=== PATIENT | female | born 1985 | race African-American/Black ===

== ENCOUNTER 2023-06-15 10:17 | Inpatient (IN) | payer MEDICARE ==
[~2023-06-15] VITALS: Ht 170.2 cm; Wt 69.5 kg
[2023-06-15] VITALS (23 sets, daily range): BP systolic 89–156; BP diastolic 49–74; PULSE 68–119; RESP 10–28; TEMP 91.2–96.8
[2023-06-15] MEDS ORDERED: SODIUM BICARBONATE 8.4% 1 MEQ/ML 50ML SYR IV ONE (10:30)
[2023-06-15] MEDS ORDERED: SODIUM CHLORIDE 0.9% 1,000 ML IV ONE (10:30)
[2023-06-15] MEDS ORDERED: ETOMIDATE 2MG/ML 10ML VIAL IV ONE (10:30)
[2023-06-15] MEDS: FENTANYL 2500MCG/250ML PMX 250 ML IV ONE (10:30)
[2023-06-15] MEDS ORDERED: VANCOMYCIN 1G PREMIX 200 ML IV ONE (10:30)
[2023-06-15] MEDS ORDERED: MIDAZOLAM HCL 100 MG in DEXT 5% WATER 80 ML IV ONE (10:30)
[2023-06-15] MEDS ORDERED: VECURONIUM BROMIDE 10 MG/VIAL IV ONE (10:30)
[2023-06-15] MEDS ORDERED: CALCIUM CHLORIDE 1GM/10ML SYR IV ONE (10:30)
[2023-06-15] MEDS ORDERED: PIPERACILLIN/TAZO 3.375G/50ML 50 ML IV ONE (10:30)
[2023-06-15 10:45] LABS: HEMATOCRIT. 48.2 % (36.0-48.0); HEMOGLOBIN. 12.1 g/dL (12.0-16.0); MEAN CORPUSCULAR HEMOGLOBIN 26.6 pg (28.0-32.0); MEAN CORPUSCULAR HGB CONC 25.2 g/dL (31.0-37.0); MEAN CORPUSCULAR VOLUME 105.7 fL (81.0-99.0); MEAN PLATELET VOLUME 10.8 fl (7.4-10.4); PLATELET 240 x1000/uL (130-400); RED BLOOD CELL COUNT 4.56 mill/uL (4.2-5.4); RED CELL DISTRIBUTION WIDTH 23.3 % (11.6-14.6); WHITE BLOOD COUNT 16.6 x1000/uL (4.5-11.0)
[2023-06-15] MEDS ORDERED: FENTANYL CITRATE/PF 2,500 MCG in SODIUM CHLORIDE 0.9% 200 ML IV ONE (10:45)
[2023-06-15] MEDS ORDERED: MIDAZOLAM HCL 100 MG in SODIUM CHLORIDE 0.9% 80 ML IV PRN (11:00)
[2023-06-15] MEDS ORDERED: FENTANYL CITRATE/PF 2,500 MCG in SODIUM CHLORIDE 0.9% 200 ML IV PRN (11:00)
[2023-06-15 11:11] LABS: LACTIC ACID 3.5 mmol/L (0.4-2.0)
[2023-06-15] MEDS ORDERED: INSULIN REGULAR (HUMULIN R) 300UNITS/3ML VIAL SUBCUT ONE (11:15)
[2023-06-15] MEDS ORDERED: NOREPINEPHRINE 8MG/250ML PMX 250 ML IV ONE (11:15)
[2023-06-15 11:51] LABS: BG CARBOXYHEMOGLOBIN 0.8 % (0.5-1.5); BG DEOXYHEMOGLOBIN 0.8 % (0.0-5.0); BG FRACTION INSPIRED OXYGEN 50; BG HCO3 ACT 6.3 mmol/L (22.0-26.0); BG METHEMOGLOBIN 0.5 % (0.0-1.5); BG OXYGEN SATURATION 99.2 % (92.0-98.5); BG OXYHEMOGLOBIN 97.9 % (94.0-97.0); BG PCO2 33.3 mmHg (35.0-45.0); BG PH 6.898 (7.350-7.450); BG PO2 283.6 mmHg (75.0-100.0); BG SAMPLE SITE RIGHT BRACHIAL; BG TOTAL HEMOGLOBIN 13.5 g/dL (12.0-18.0); BG VENT MODE VENT - AC
[2023-06-15] MEDS ORDERED: SODIUM BICARBONATE 150 MEQ in SODIUM CHLORIDE 0.45% 1,000 ML IV STA (11:51)
[2023-06-15 12:00] LABS: ALANINE AMINOTRANSFERASE < 7 IU/L (10-49); ALBUMIN 3.1 g/dL (3.2-4.8); ASPARTATE AMINOTRANSFERASE 39 IU/L (<34); CALCIUM 11.6 mg/dL (8.7-10.4); CHLORIDE 79 mEq/L (98-107); PROTEIN TOTAL 6.2 g/dL (6.0-8.3); SODIUM 129 mEq/L (136-145); UREA NITROGEN BLOOD 100 mg/dL (9-23)
[2023-06-15] MEDS ORDERED: KCL 20MEQ/100ML PREMIX 100 ML IV PRN (12:00)
[2023-06-15] MEDS ORDERED: POTASSIUM CHLORIDE INJ 40 MEQ in SODIUM CHLORIDE 0.9% 230 ML IV PRN (12:00)
[2023-06-15] MEDS ORDERED: DEXTROSE 50% WATER 50ML SYRINGE IV PRN ×2 (12:00→22:00)
[2023-06-15] MEDS ORDERED: INSULIN REGULAR (DRIP) 100 UNITS in SODIUM CHLORIDE 0.9% 99 ML IV SCH ×2 (12:00→22:00)
[2023-06-15 12:19] LABS: CARBON DIOXIDE < 10 mEq/L (21-32); ETHANOL BLOOD < 10 mg/dL (<10)
[2023-06-15 12:22] LABS: BILIRUBIN TOTAL < 0.2 mg/dL (0.1-1.0); TROPONIN I HIGH SENSITIVITY 75 ng/L (3.0-34)
[2023-06-15 12:22] LABS: DIFFERENTIAL COMMENT 1
[2023-06-15 12:23] LABS: PROTHROMBIN TIME > 100.0 sec (9.6-11.0)
[2023-06-15 12:24] LABS: GLUCOSE 1193 mg/dL (70-105)
[2023-06-15 12:25] LABS: INR > 10.0; POTASSIUM 6.9 mEq/L (3.5-5.1)
[2023-06-15] MEDS: BLOOD SUGAR DIAGNOSTIC STRIP TEST SCH ×12 (12:38→23:00)
[2023-06-15 12:58] LABS: HCG SCREEN NEGATIVE
[2023-06-15 13:56] LABS: PLATELET ESTIMATE NORMAL; TOXIC VACUOLATION 2+
[2023-06-15 13:57] LABS: ANISOCYTOSIS 1+
[2023-06-15] MEDS ORDERED: IPRATROPIUM/ALBUTEROL 0.5-3(2.5)MG/3ML NEB HHN PRN (14:30)
[2023-06-15] MEDS ORDERED: ONDANSETRON HCL 4MG/2ML INJ IV PRN (14:30)
[2023-06-15] MEDS ORDERED: PHYTONADIONE 10MG/ML INJ SUBCUT NR (14:30)
[2023-06-15] MEDS ORDERED: ACETAMINOPHEN 650MG/20.3ML UDC GT PRN (14:30)
[2023-06-15] MEDS ORDERED: INSULIN REGULAR 100U/100ML PMX 100 ML IV SCH (15:00)
[2023-06-15 16:01] LABS: CALCIUM 8.1 mg/dL (8.7-10.4); POTASSIUM 4.2 mEq/L (3.5-5.1)
[2023-06-15 16:14] LABS: CREATININE 9.1 mg/dL (0.6-1.0)
[2023-06-15 17:36] LABS: BG BASE EXCESS -10.6 mmol/L (-2.0-2.0); BG CARBOXYHEMOGLOBIN 0.9 % (0.5-1.5); BG DEOXYHEMOGLOBIN 0.9 % (0.0-5.0); BG FRACTION INSPIRED OXYGEN 40; BG HCO3 ACT 13.4 mmol/L (22.0-26.0); BG METHEMOGLOBIN 0.3 % (0.0-1.5); BG OXYGEN SATURATION 99.1 % (92.0-98.5); BG OXYHEMOGLOBIN 97.9 % (94.0-97.0); BG PCO2 25.4 mmHg (35.0-45.0); BG PH 7.339 (7.350-7.450); BG PO2 161.4 mmHg (75.0-100.0); BG SAMPLE SITE RIGHT BRACHIAL; BG TOTAL HEMOGLOBIN 13.5 g/dL (12.0-18.0); BG VENT MODE VENT - AC
[2023-06-15] MEDS ORDERED: PIPERACILLIN/TAZO 3.375G/50ML 50 ML IV SCH (21:00)
[2023-06-15] MEDS ORDERED: FENTANYL 2500MCG/250ML PMX 250 ML IV ONE (22:00)
[2023-06-15] MEDS: DEXT 5%/0.9% NACL 1,000 ML IV SCH (22:00)
[2023-06-15] MEDS ORDERED: MIDAZOLAM 100MG/100ML PMX 100 ML IV PRN (22:00)
[2023-06-15] MEDS ORDERED: FENTANYL CITRATE 2,500 MCG in SODIUM CHLORIDE 0.9% 200 ML IV PRN (22:30)
[2023-06-15] MEDS ORDERED: MIDAZOLAM HCL 100 MG in SODIUM CHLORIDE 0.9% 100 ML IV PRN (22:30)
[2023-06-15] MEDS: INSULIN REGULAR 100U/100ML PMX 100 ML IV SCH (23:46)
[2023-06-15 23:47] LABS: BG BASE EXCESS 0.9 mmol/L (-2.0-2.0); BG DEOXYHEMOGLOBIN 1.9 % (0.0-5.0); BG FRACTION INSPIRED OXYGEN 40; BG HCO3 ACT 23.4 mmol/L (22.0-26.0); BG METHEMOGLOBIN 0.3 % (0.0-1.5); BG OXYGEN SATURATION 98.1 % (92.0-98.5); BG OXYHEMOGLOBIN 96.8 % (94.0-97.0); BG PCO2 31.1 mmHg (35.0-45.0); BG PH 7.495 (7.350-7.450); BG PO2 101.6 mmHg (75.0-100.0); BG SAMPLE SITE RIGHT FEMORAL; BG TOTAL HEMOGLOBIN 13.2 g/dL (12.0-18.0); BG VENT MODE VENT - AC
[2023-06-16] VITALS (100 sets, daily range): BP systolic 83–165; BP diastolic 43–87; PULSE 102–125; RESP 13–26; TEMP 97–99.7
[2023-06-16] MEDS ORDERED: NOREPINEPHRINE 8MG/250ML PMX 250 ML IV PRN
[2023-06-16 00:32] LABS: ALANINE AMINOTRANSFERASE 10 IU/L (10-49); ALBUMIN 3.4 g/dL (3.2-4.8); ASPARTATE AMINOTRANSFERASE 55 IU/L (<34); BILIRUBIN TOTAL 0.2 mg/dL (0.1-1.0); CALCIUM 8.2 mg/dL (8.7-10.4); CARBON DIOXIDE 19 mEq/L (21-32); CHLORIDE 85 mEq/L (98-107); PHOSPHORUS 4.8 mg/dL (2.5-4.9); POTASSIUM 4.6 mEq/L (3.5-5.1); PROTEIN TOTAL 6.9 g/dL (6.0-8.3); SODIUM 133 mEq/L (136-145); UREA NITROGEN BLOOD 63 mg/dL (9-23)
[2023-06-16 00:42] LABS: GLUCOSE 554 mg/dL (70-105)
[2023-06-16 00:43] LABS: CREATININE 11.3 mg/dL (0.6-1.0)
[2023-06-16] MEDS: BLOOD SUGAR DIAGNOSTIC STRIP TEST SCH ×23 (01:09→23:00)
[2023-06-16] MEDS: PIPERACILLIN/TAZO 3.375G/50ML 50 ML IV SCH ×3 (01:48→21:26)
[2023-06-16] MEDS: DEXT 5%/0.9% NACL 1,000 ML IV SCH ×3 (05:16→21:26)
[2023-06-16 05:49] LABS: HEMATOCRIT. 38.4 % (36.0-48.0); HEMOGLOBIN. 11.5 g/dL (12.0-16.0); MEAN CORPUSCULAR HEMOGLOBIN 26.1 pg (28.0-32.0); MEAN CORPUSCULAR HGB CONC 29.9 g/dL (31.0-37.0); MEAN CORPUSCULAR VOLUME 87.4 fL (81.0-99.0); MEAN PLATELET VOLUME 8.8 fl (7.4-10.4); PLATELET 269 x1000/uL (130-400); RED BLOOD CELL COUNT 4.39 mill/uL (4.2-5.4); RED CELL DISTRIBUTION WIDTH 20.7 % (11.6-14.6); WHITE BLOOD COUNT 14.3 x1000/uL (4.5-11.0)
[2023-06-16 05:53] LABS: INR 1.5; PROTHROMBIN TIME 16.1 sec (9.6-11.0)
[2023-06-16 06:51] LABS: DIFFERENTIAL COMMENT 1
[2023-06-16 07:03] LABS: ALANINE AMINOTRANSFERASE 9 IU/L (10-49); ALBUMIN 3.4 g/dL (3.2-4.8); ASPARTATE AMINOTRANSFERASE 53 IU/L (<34); BILIRUBIN TOTAL 0.2 mg/dL (0.1-1.0); CALCIUM 8.7 mg/dL (8.7-10.4); CARBON DIOXIDE 21 mEq/L (21-32); CHLORIDE 89 mEq/L (98-107); GLUCOSE 320 mg/dL (70-105); PHOSPHORUS 4.5 mg/dL (2.5-4.9); POTASSIUM 4.7 mEq/L (3.5-5.1); PROTEIN TOTAL 6.9 g/dL (6.0-8.3); SODIUM 135 mEq/L (136-145); UREA NITROGEN BLOOD 66 mg/dL (9-23)
[2023-06-16 07:04] LABS: CREATININE 11.7 mg/dL (0.6-1.0)
[2023-06-16 08:56] LABS: BG BASE EXCESS 7.1 mmol/L (-2.0-2.0); BG CARBOXYHEMOGLOBIN 1.2 % (0.5-1.5); BG DEOXYHEMOGLOBIN 1.7 % (0.0-5.0); BG FRACTION INSPIRED OXYGEN 40; BG HCO3 ACT 31.3 mmol/L (22.0-26.0); BG METHEMOGLOBIN 0.3 % (0.0-1.5); BG OXYGEN SATURATION 98.3 % (92.0-98.5); BG OXYHEMOGLOBIN 96.8 % (94.0-97.0); BG PCO2 42.6 mmHg (35.0-45.0); BG PH 7.484 (7.350-7.450); BG PO2 109.9 mmHg (75.0-100.0); BG SAMPLE SITE LEFT BRACHIAL; BG TOTAL HEMOGLOBIN 13.1 g/dL (12.0-18.0); BG TOTAL RESPIRATORY RATE 20 b/min; BG VENT MODE VENT - AC
[2023-06-16 09:17] LABS: CARBON DIOXIDE 26 mEq/L (21-32); CHLORIDE 93 mEq/L (98-107); PHOSPHORUS 4.7 mg/dL (2.5-4.9); POTASSIUM 4.2 mEq/L (3.5-5.1); SODIUM 140 mEq/L (136-145)
[2023-06-16] MEDS: INSULIN REGULAR 100U/100ML PMX 100 ML IV SCH (09:38)
[2023-06-16 10:04] LABS: PLATELET ESTIMATE NORMAL
[2023-06-16 10:05] LABS: ANISOCYTOSIS 1+
[2023-06-16] MEDS: PANTOPRAZOLE SODIUM 40 MG/VIAL IV SCH (11:00)
[2023-06-16 12:32] LABS: CALCIUM 8.9 mg/dL (8.7-10.4); POTASSIUM 4.8 mEq/L (3.5-5.1)
[2023-06-16 12:34] LABS: CREATININE 11.5 mg/dL (0.6-1.0)
[2023-06-16] MEDS: ENOXAPARIN 60MG/0.6ML SYR SUBCUT SCH (12:53)
[2023-06-16 17:47] LABS: CALCIUM 9.4 mg/dL (8.7-10.4); POTASSIUM 4.5 mEq/L (3.5-5.1)
[2023-06-16 18:05] LABS: CREATININE 12.5 mg/dL (0.6-1.0)
[2023-06-16 22:06] LABS: CALCIUM 9.3 mg/dL (8.7-10.4); POTASSIUM 4.6 mEq/L (3.5-5.1)
[2023-06-16 22:16] LABS: CREATININE 11.7 mg/dL (0.6-1.0)
[2023-06-17] VITALS (83 sets, daily range): BP systolic 106–166; BP diastolic 56–105; PULSE 109–129; RESP 0–28; TEMP 96.7–100.4
[2023-06-17] MEDS: BLOOD SUGAR DIAGNOSTIC STRIP TEST SCH ×14 (00:07→21:57)
[2023-06-17 05:46] LABS: HEMATOCRIT. 35.1 % (36.0-48.0); HEMOGLOBIN. 10.9 g/dL (12.0-16.0); MEAN CORPUSCULAR HEMOGLOBIN 26.5 pg (28.0-32.0); MEAN CORPUSCULAR HGB CONC 31.2 g/dL (31.0-37.0); MEAN PLATELET VOLUME 8.6 fl (7.4-10.4); PLATELET 170 x1000/uL (130-400); RED BLOOD CELL COUNT 4.13 mill/uL (4.2-5.4); WHITE BLOOD COUNT 13.6 x1000/uL (4.5-11.0)
[2023-06-17 05:51] LABS: INR 1.1
[2023-06-17 06:13] LABS: POTASSIUM 4.1 mEq/L (3.5-5.1)
[2023-06-17 06:15] LABS: CREATININE 11.7 mg/dL (0.6-1.0)
[2023-06-17] MEDS: DEXT 5%/0.9% NACL 1,000 ML IV SCH (06:40)
[2023-06-17 06:42] LABS: DIFFERENTIAL COMMENT 1
[2023-06-17 08:42] LABS: BG BASE EXCESS 0.3 mmol/L (-2.0-2.0); BG CARBOXYHEMOGLOBIN 0.5 % (0.5-1.5); BG DEOXYHEMOGLOBIN 1.9 % (0.0-5.0); BG FRACTION INSPIRED OXYGEN 40; BG HCO3 ACT 24.3 mmol/L (22.0-26.0); BG METHEMOGLOBIN 0.3 % (0.0-1.5); BG OXYGEN SATURATION 98.1 % (92.0-98.5); BG OXYHEMOGLOBIN 97.3 % (94.0-97.0); BG PH 7.436 (7.350-7.450); BG PO2 115.2 mmHg (75.0-100.0); BG SAMPLE SITE RIGHT RADIAL; BG TOTAL HEMOGLOBIN 11.5 g/dL (12.0-18.0); BG TOTAL RESPIRATORY RATE 20 b/min; BG VENT MODE VENT - AC
[2023-06-17] MEDS: PIPERACILLIN/TAZO 3.375G/50ML 50 ML IV SCH ×2 (09:16→21:49)
[2023-06-17] MEDS: ENOXAPARIN 60MG/0.6ML SYR SUBCUT SCH (09:17)
[2023-06-17 10:19] LABS: CALCIUM 8.9 mg/dL (8.7-10.4); POTASSIUM 4.3 mEq/L (3.5-5.1)
[2023-06-17 10:29] LABS: CREATININE 12.5 mg/dL (0.6-1.0)
[2023-06-17 10:34] LABS: ANISOCYTOSIS 1+
[2023-06-17 10:35] LABS: PLATELET ESTIMATE NORMAL
[2023-06-17] MEDS: PANTOPRAZOLE SODIUM 40 MG/VIAL IV SCH (11:21)
[2023-06-17 12:30] LABS: CARBON DIOXIDE 27 mEq/L (21-32); CHLORIDE 100 mEq/L (98-107); PHOSPHORUS 5.8 mg/dL (2.5-4.9); POTASSIUM 4.4 mEq/L (3.5-5.1); SODIUM 141 mEq/L (136-145)
[2023-06-17] MEDS ORDERED: DEXTROSE 50% WATER 50ML SYRINGE IV PRN (12:45)
[2023-06-17] MEDS: INSULIN LISPRO 100 UNITS/ML SUBCUT SCH ×3 (12:53→22:13)
[2023-06-17] MEDS ORDERED: VANCOMYCIN 1G PREMIX 200 ML IV NR (16:00)
[2023-06-17] MEDS: INSULIN GLARGINE 100 UNITS/ML SUBCUT SCH ×2 (17:38→21:50)
[2023-06-17] MEDS: ACETAMINOPHEN 650MG/20.3ML UDC GT PRN (19:47)
[2023-06-17] MEDS: CLONIDINE 0.1MG TABLET PO PRN (22:23)
[2023-06-17 23:06] LABS: HEPATITIS A AB IGM NEGATIVE (Negative); HEPATITIS B CORE AB IGM NEGATIVE (Negative); HEPATITIS B SURFACE ANTIGEN NEGATIVE (Negative); HEPATITIS C AB NON REACTIVE (Neg) (Negative)
[2023-06-18] VITALS (93 sets, daily range): BP systolic 142–199; BP diastolic 77–119; PULSE 83–119; RESP 4–24; TEMP 98.9–100.1
[2023-06-18 05:14] LABS: HEMATOCRIT. 31.4 % (36.0-48.0); HEMOGLOBIN. 9.6 g/dL (12.0-16.0); MEAN CORPUSCULAR HEMOGLOBIN 25.9 pg (28.0-32.0); MEAN CORPUSCULAR HGB CONC 30.4 g/dL (31.0-37.0); MEAN CORPUSCULAR VOLUME 85.2 fL (81.0-99.0); MEAN PLATELET VOLUME 8.7 fl (7.4-10.4); PLATELET 142 x1000/uL (130-400); RED BLOOD CELL COUNT 3.69 mill/uL (4.2-5.4); WHITE BLOOD COUNT 15.1 x1000/uL (4.5-11.0)
[2023-06-18 05:23] LABS: CALCIUM 8.9 mg/dL (8.7-10.4); POTASSIUM 4.8 mEq/L (3.5-5.1)
[2023-06-18 05:41] LABS: CREATININE 8.6 mg/dL (0.6-1.0)
[2023-06-18] MEDS: CLONIDINE 0.1MG TABLET PO PRN (05:52)
[2023-06-18 06:00] LABS: DIFFERENTIAL COMMENT 1
[2023-06-18] MEDS: BLOOD SUGAR DIAGNOSTIC STRIP TEST SCH ×4 (07:50→21:40)
[2023-06-18] MEDS: INSULIN LISPRO 100 UNITS/ML SUBCUT SCH ×4 (08:20→22:04)
[2023-06-18] MEDS: PIPERACILLIN/TAZO 3.375G/50ML 50 ML IV SCH ×2 (09:20→21:40)
[2023-06-18] MEDS: PANTOPRAZOLE SODIUM 40 MG/VIAL IV SCH (09:21)
[2023-06-18] MEDS: ENOXAPARIN 60MG/0.6ML SYR SUBCUT SCH (09:21)
[2023-06-18] MEDS: INSULIN GLARGINE 100 UNITS/ML SUBCUT SCH ×2 (10:00→21:50)
[2023-06-18 10:11] LABS: BG BASE EXCESS 2.7 mmol/L (-2.0-2.0); BG CARBOXYHEMOGLOBIN 0.3 % (0.5-1.5); BG DEOXYHEMOGLOBIN 0.6 % (0.0-5.0); BG FRACTION INSPIRED OXYGEN 40; BG HCO3 ACT 26.4 mmol/L (22.0-26.0); BG METHEMOGLOBIN 0.3 % (0.0-1.5); BG OXYGEN SATURATION 99.4 % (92.0-98.5); BG OXYHEMOGLOBIN 98.8 % (94.0-97.0); BG PH 7.471 (7.350-7.450); BG PO2 222.3 mmHg (75.0-100.0); BG SAMPLE SITE RIGHT RADIAL; BG TOTAL HEMOGLOBIN 10.9 g/dL (12.0-18.0); BG VENT MODE VENT - AC
[2023-06-18] MEDS ORDERED: CLONIDINE 0.1MG TABLET PO NR (11:30)
[2023-06-18 12:22] LABS: ANISOCYTOSIS 2+; PLATELET ESTIMATE NORMAL; TARGET CELLS 1+
[2023-06-18 12:44] LABS: BG BASE EXCESS 4.4 mmol/L (-2.0-2.0); BG CARBOXYHEMOGLOBIN 1.1 % (0.5-1.5); BG DEOXYHEMOGLOBIN 0.7 % (0.0-5.0); BG FRACTION INSPIRED OXYGEN 35; BG HCO3 ACT 27.1 mmol/L (22.0-26.0); BG METHEMOGLOBIN 0.2 % (0.0-1.5); BG OXYGEN SATURATION 99.3 % (92.0-98.5); BG PCO2 33.9 mmHg (35.0-45.0); BG PH 7.521 (7.350-7.450); BG PO2 162.4 mmHg (75.0-100.0); BG SAMPLE SITE RIGHT RADIAL; BG TOTAL HEMOGLOBIN 11.5 g/dL (12.0-18.0); BG TOTAL RESPIRATORY RATE 17 b/min; BG VENT MODE VENT - CPAP
[2023-06-18] MEDS ORDERED: CLONIDINE HCL 0.3MG/24HR PATCH TD SCH (14:00)
[2023-06-18] MEDS: CLONIDINE 0.1MG TABLET PO SCH ×2 (15:11→21:40)
[2023-06-18] MEDS: ACETAMINOPHEN 650MG/20.3ML UDC GT PRN (18:22)
[2023-06-18] MEDS ORDERED: AMLODIPINE 5MG TABLET PO SCH (21:00)
[2023-06-19] VITALS (51 sets, daily range): BP systolic 147–218; BP diastolic 81–124; PULSE 76–106; RESP 15–29; TEMP 96.1–99.4
[2023-06-19] MEDS: CLONIDINE 0.1MG TABLET PO PRN (00:10)
[2023-06-19 05:43] LABS: HEMATOCRIT. 32.3 % (36.0-48.0); HEMOGLOBIN. 9.9 g/dL (12.0-16.0); MEAN CORPUSCULAR HEMOGLOBIN 26.1 pg (28.0-32.0); MEAN CORPUSCULAR HGB CONC 30.5 g/dL (31.0-37.0); MEAN CORPUSCULAR VOLUME 85.7 fL (81.0-99.0); MEAN PLATELET VOLUME 8.7 fl (7.4-10.4); PLATELET 136 x1000/uL (130-400); RED BLOOD CELL COUNT 3.78 mill/uL (4.2-5.4); RED CELL DISTRIBUTION WIDTH 21.4 % (11.6-14.6); WHITE BLOOD COUNT 15.4 x1000/uL (4.5-11.0)
[2023-06-19] MEDS: CLONIDINE 0.1MG TABLET PO SCH (05:45)
[2023-06-19 05:55] LABS: CALCIUM 9.1 mg/dL (8.7-10.4); POTASSIUM 4.6 mEq/L (3.5-5.1)
[2023-06-19 06:10] LABS: CREATININE 9.7 mg/dL (0.6-1.0)
[2023-06-19 07:37] LABS: DIFFERENTIAL COMMENT 1
[2023-06-19] MEDS: BLOOD SUGAR DIAGNOSTIC STRIP TEST SCH ×4 (07:50→21:19)
[2023-06-19] MEDS: AMLODIPINE 5MG TABLET PO SCH ×2 (08:00→18:23)
[2023-06-19] MEDS: INSULIN LISPRO 100 UNITS/ML SUBCUT SCH ×4 (08:20→21:00)
[2023-06-19] MEDS: MINOXIDIL 2.5MG TABLET PO SCH ×2 (09:00→21:21)
[2023-06-19] MEDS: PIPERACILLIN/TAZO 3.375G/50ML 50 ML IV SCH ×2 (09:00→21:20)
[2023-06-19] MEDS: PANTOPRAZOLE SODIUM 40 MG/VIAL IV SCH (09:45)
[2023-06-19] MEDS: ENOXAPARIN 60MG/0.6ML SYR SUBCUT SCH (09:45)
[2023-06-19] MEDS: INSULIN GLARGINE 100 UNITS/ML SUBCUT SCH ×2 (09:46→21:25)
[2023-06-19] MEDS: ISOSORBIDE DINITRATE 10MG TABLET PO SCH ×3 (11:00→20:00)
[2023-06-19] MEDS: CLONIDINE 0.2MG TABLET PO SCH ×2 (14:29→21:22)
[2023-06-19] MEDS ORDERED: LACTULOSE 20G/30ML UDC PO NR (15:15)
[2023-06-19 18:55] LABS: ANISOCYTOSIS 2+; PLATELET ESTIMATE NORMAL
[2023-06-19] MEDS ORDERED: EPOETIN ALFA 4000UNITS/ML VIAL SUBCUT SCH (21:00)
[2023-06-20] VITALS (7 sets, daily range): BP systolic 134–165; BP diastolic 67–95; PULSE 79–98; RESP 18–20; TEMP 97.4–100.2
[2023-06-20] MEDS: AMLODIPINE 5MG TABLET PO SCH (05:55)
[2023-06-20] MEDS: CLONIDINE 0.2MG TABLET PO SCH ×3 (06:04→21:58)
[2023-06-20] MEDS: BLOOD SUGAR DIAGNOSTIC STRIP TEST SCH ×4 (06:05→21:00)
[2023-06-20 06:58] LABS: BASOPHILS % 0.3 % (0.0-2.0); EOSINOPHILS % 6.2 % (0.0-5.0); HEMOGLOBIN. 10.2 g/dL (12.0-16.0); LYMPHOCYTES % 8.2 % (20.0-50.0); MEAN CORPUSCULAR HEMOGLOBIN 26.5 pg (28.0-32.0); MEAN CORPUSCULAR HGB CONC 30.9 g/dL (31.0-37.0); MEAN CORPUSCULAR VOLUME 85.8 fL (81.0-99.0); MEAN PLATELET VOLUME 8.9 fl (7.4-10.4); MONOCYTES % 12.6 % (2.0-8.0); NEUTROPHILS % 72.7 % (40.0-76.0); PLATELET 140 x1000/uL (130-400); RED BLOOD CELL COUNT 3.84 mill/uL (4.2-5.4); RED CELL DISTRIBUTION WIDTH 21.2 % (11.6-14.6); WHITE BLOOD COUNT 9.1 x1000/uL (4.5-11.0)
[2023-06-20 08:01] LABS: CALCIUM 8.9 mg/dL (8.7-10.4); PHOSPHORUS 4.3 mg/dL (2.5-4.9); POTASSIUM 4.5 mEq/L (3.5-5.1)
[2023-06-20] MEDS: INSULIN LISPRO 100 UNITS/ML SUBCUT SCH ×4 (08:10→21:00)
[2023-06-20 08:11] LABS: CREATININE 6.7 mg/dL (0.6-1.0)
[2023-06-20] MEDS: NIFEDIPINE XL 60MG TAB PO SCH ×2 (09:45→21:47)
[2023-06-20] MEDS: PANTOPRAZOLE SODIUM 40 MG/VIAL IV SCH (09:45)
[2023-06-20] MEDS: ISOSORBIDE DINITRATE 10MG TABLET PO SCH ×3 (09:46→18:03)
[2023-06-20] MEDS: MINOXIDIL 2.5MG TABLET PO SCH ×2 (09:46→21:46)
[2023-06-20] MEDS: ENOXAPARIN 60MG/0.6ML SYR SUBCUT SCH (09:47)
[2023-06-20] MEDS: PIPERACILLIN/TAZO 3.375G/50ML 50 ML IV SCH (09:47)
[2023-06-20] MEDS: INSULIN GLARGINE 100 UNITS/ML SUBCUT SCH ×2 (09:48→23:02)
[2023-06-20] MEDS: NYSTATIN 100,000 UNITS/ML 5ML UDC SSW SCH (18:03)
[2023-06-20] MEDS ORDERED: GENTAMICIN 120MG PREMIX 100 ML IV SCH (20:00)
[2023-06-21] VITALS (12 sets, daily range): BP systolic 102–145; BP diastolic 49–82; PULSE 97–112; RESP 18–20; TEMP 97–98.3
[2023-06-21] MEDS: NYSTATIN 100,000 UNITS/ML 5ML UDC SSW SCH ×4 (00:14→17:28)
[2023-06-21] MEDS: CLONIDINE 0.2MG TABLET PO SCH ×3 (06:00→22:00)
[2023-06-21] MEDS: BLOOD SUGAR DIAGNOSTIC STRIP TEST SCH ×4 (07:33→21:35)
[2023-06-21 08:03] LABS: CALCIUM 8.7 mg/dL (8.7-10.4); PHOSPHORUS 4.8 mg/dL (2.5-4.9); POTASSIUM 4.7 mEq/L (3.5-5.1)
[2023-06-21 08:04] LABS: CREATININE 8.5 mg/dL (0.6-1.0)
[2023-06-21] MEDS: INSULIN LISPRO 100 UNITS/ML SUBCUT SCH ×4 (08:10→21:00)
[2023-06-21 08:27] LABS: HEMOGLOBIN. 9.5 g/dL (12.0-16.0); MEAN CORPUSCULAR HEMOGLOBIN 26.3 pg (28.0-32.0); MEAN CORPUSCULAR HGB CONC 30.6 g/dL (31.0-37.0); MEAN CORPUSCULAR VOLUME 85.8 fL (81.0-99.0); MEAN PLATELET VOLUME 9.2 fl (7.4-10.4); PLATELET 177 x1000/uL (130-400); RED BLOOD CELL COUNT 3.62 mill/uL (4.2-5.4); RED CELL DISTRIBUTION WIDTH 21.2 % (11.6-14.6); WHITE BLOOD COUNT 7.5 x1000/uL (4.5-11.0)
[2023-06-21 08:46] LABS: DIFFERENTIAL COMMENT 1
[2023-06-21] MEDS: ISOSORBIDE DINITRATE 10MG TABLET PO SCH ×3 (09:00→17:27)
[2023-06-21] MEDS: NIFEDIPINE XL 60MG TAB PO SCH ×2 (09:00→21:00)
[2023-06-21] MEDS: INSULIN GLARGINE 100 UNITS/ML SUBCUT SCH ×2 (10:48→21:57)
[2023-06-21] MEDS: PANTOPRAZOLE SODIUM 40 MG/VIAL IV SCH (14:21)
[2023-06-21] MEDS: ENOXAPARIN 60MG/0.6ML SYR SUBCUT SCH (14:21)
[2023-06-21 16:43] LABS: PLATELET ESTIMATE NORMAL
[2023-06-21 16:44] LABS: ANISOCYTOSIS 2+
[2023-06-21] MEDS: LORAZEPAM 0.5MG TABLET PO PRN (17:28)
[2023-06-21] MEDS ORDERED: VANCOMYCIN 500MG PREMIX 100 ML IV NR (18:00)
[2023-06-21] MEDS ORDERED: EPOETIN ALFA 4000UNITS/ML VIAL SUBCUT SCH (21:00)
[2023-06-22] VITALS (7 sets, daily range): BP systolic 99–143; BP diastolic 55–74; PULSE 84–102; RESP 17–20; TEMP 97–98.5
[2023-06-22] MEDS: CLONIDINE 0.2MG TABLET PO SCH ×3 (06:18→22:00)
[2023-06-22] MEDS: NYSTATIN 100,000 UNITS/ML 5ML UDC SSW SCH ×5 (06:18→23:57)
[2023-06-22 06:40] LABS: HEMATOCRIT. 28.9 % (36.0-48.0); HEMOGLOBIN. 9.2 g/dL (12.0-16.0); MEAN CORPUSCULAR HEMOGLOBIN 26.6 pg (28.0-32.0); MEAN CORPUSCULAR VOLUME 83.2 fL (81.0-99.0); MEAN PLATELET VOLUME 8.5 fl (7.4-10.4); PLATELET 253 x1000/uL (130-400); RED BLOOD CELL COUNT 3.47 mill/uL (4.2-5.4); RED CELL DISTRIBUTION WIDTH 20.8 % (11.6-14.6); WHITE BLOOD COUNT 4.6 x1000/uL (4.5-11.0)
[2023-06-22 07:10] LABS: CALCIUM 8.9 mg/dL (8.7-10.4); GENTAMICIN RANDOM 2.1 ug/mL; PHOSPHORUS 4.2 mg/dL (2.5-4.9); POTASSIUM 4.3 mEq/L (3.5-5.1)
[2023-06-22] MEDS: INSULIN LISPRO 100 UNITS/ML SUBCUT SCH ×4 (07:24→22:04)
[2023-06-22] MEDS: BLOOD SUGAR DIAGNOSTIC STRIP TEST SCH ×4 (07:24→22:04)
[2023-06-22 08:20] LABS: DIFFERENTIAL COMMENT 1
[2023-06-22] MEDS: ISOSORBIDE DINITRATE 10MG TABLET PO SCH ×3 (08:47→17:00)
[2023-06-22] MEDS: NIFEDIPINE XL 60MG TAB PO SCH ×2 (08:48→21:41)
[2023-06-22] MEDS: LORAZEPAM 0.5MG TABLET PO PRN ×2 (08:48→23:43)
[2023-06-22] MEDS: ENOXAPARIN 60MG/0.6ML SYR SUBCUT SCH (08:49)
[2023-06-22] MEDS: PANTOPRAZOLE SODIUM 40 MG/VIAL IV SCH (09:06)
[2023-06-22] MEDS: INSULIN GLARGINE 100 UNITS/ML SUBCUT SCH ×2 (09:30→22:37)
[2023-06-22] MEDS ORDERED: GENTAMICIN 120MG PREMIX 100 ML IV NR (12:00)
[2023-06-22] MEDS: FLUCONAZOLE 100MG TABLET PO SCH (13:07)
[2023-06-22] MEDS: ALBUTEROL (0.083%) 2.5MG/3ML NEB HHN SCH (17:57)
[2023-06-22] MEDS ORDERED: LEVOFLOXACIN 250MG TABLET PO NR (18:45)
[2023-06-22] MEDS ORDERED: DIPHENHYDRAMINE 25MG CAPSULE PO PRN (18:45)
[2023-06-22 21:06] LABS: ANISOCYTOSIS 2+
[2023-06-22 21:08] LABS: PLATELET ESTIMATE NORMAL
[2023-06-23] VITALS (14 sets, daily range): BP systolic 102–146; BP diastolic 49–93; PULSE 78–94; RESP 16–20; TEMP 97.3–97.8; O2SAT 98–99
[2023-06-23] MEDS: CLONIDINE 0.2MG TABLET PO SCH ×2 (06:00→12:42)
[2023-06-23] MEDS: NYSTATIN 100,000 UNITS/ML 5ML UDC SSW SCH ×2 (06:14→10:47)
[2023-06-23 07:08] LABS: HEMATOCRIT. 30.2 % (36.0-48.0); HEMOGLOBIN. 9.6 g/dL (12.0-16.0); MEAN CORPUSCULAR HEMOGLOBIN 26.4 pg (28.0-32.0); MEAN CORPUSCULAR HGB CONC 31.7 g/dL (31.0-37.0); MEAN CORPUSCULAR VOLUME 83.4 fL (81.0-99.0); MEAN PLATELET VOLUME 8.8 fl (7.4-10.4); PLATELET 351 x1000/uL (130-400); RED BLOOD CELL COUNT 3.63 mill/uL (4.2-5.4); WHITE BLOOD COUNT 6.4 x1000/uL (4.5-11.0)
[2023-06-23 07:14] LABS: DIFFERENTIAL COMMENT 1
[2023-06-23 07:38] LABS: CALCIUM 8.9 mg/dL (8.7-10.4); PHOSPHORUS 4.9 mg/dL (2.5-4.9); POTASSIUM 4.1 mEq/L (3.5-5.1)
[2023-06-23] MEDS: BLOOD SUGAR DIAGNOSTIC STRIP TEST SCH ×2 (07:40→10:52)
[2023-06-23] MEDS: INSULIN LISPRO 100 UNITS/ML SUBCUT SCH ×2 (08:10→10:53)
[2023-06-23] MEDS: NIFEDIPINE XL 60MG TAB PO SCH (09:00)
[2023-06-23] MEDS: ISOSORBIDE DINITRATE 10MG TABLET PO SCH ×2 (09:00→12:51)
[2023-06-23] MEDS: INSULIN GLARGINE 100 UNITS/ML SUBCUT SCH (09:49)
[2023-06-23] MEDS: ENOXAPARIN 60MG/0.6ML SYR SUBCUT SCH (09:53)
[2023-06-23] MEDS: FLUCONAZOLE 100MG TABLET PO SCH (09:54)
[2023-06-23] MEDS: PANTOPRAZOLE SODIUM 40 MG/VIAL IV SCH (09:55)
[2023-06-23] MEDS: LORAZEPAM 0.5MG TABLET PO PRN (10:04)
[2023-06-23] MEDS: ALBUTEROL (0.083%) 2.5MG/3ML NEB HHN SCH (10:17)
[2023-06-23] MEDS ORDERED: ISOS10TA2 PO ×2 (12:58)
[2023-06-23] MEDS ORDERED: CLON0.2T PO ×2 (12:58)
[2023-06-23] MEDS ORDERED: CLON1PAT12 TD ×2 (12:58)
[2023-06-23] MEDS ORDERED: LEVO-65 MT ×2 (12:58)
[2023-06-23] MEDS ORDERED: LANTUSUD SUBCUT ×2 (12:58)
[2023-06-23] MEDS ORDERED: FLUC100T PO ×2 (12:58)
[2023-06-23] MEDS ORDERED: NIFE-32 PO ×2 (12:58)
[2023-06-23 17:00] LABS: PLATELET ESTIMATE NORMAL
[2023-06-23 17:01] LABS: ANISOCYTOSIS 2+
[2023-06-23] MEDS ORDERED: VANCOMYCIN 500MG PREMIX 100 ML IV NR (22:00)
[2023-06-24] MEDS ORDERED: FLUC100T42 MT (07:29)
[2023-06-24] MEDS ORDERED: NIFE-32 MT (07:29)
[2023-06-24] MEDS ORDERED: INSU100I28 SQ (07:29)
[2023-06-24] MEDS ORDERED: CLON0.1T MT (07:29)
[2023-06-24] MEDS ORDERED: CLON1PAT10 TP (07:29)
[2023-06-24] MEDS ORDERED: ISOS10TA2 MT (07:29)
[2023-06-24] MEDS ORDERED: LEVO-65 MT (07:29)
[2023-06-24] MEDS ORDERED: LEVOFLOXACIN 500MG TABLET PO SCH (11:00)
== END 2023-06-23 15:30 | disposition home health service (06) | DRG 871 ==
LOC: ER 10:38 → CVICU 12:35 → 7WST 06-19 17:59
PROVIDERS: ADMIT Internal Medicine; ATTEND Internal Medicine
PROC: 0BH17EZ Insertion of Endotracheal Airway into Trachea, Via Natural or Artificial Opening (ICD-10-PCS; principal; 2023-06-15)
PROC: 5A1945Z Respiratory Ventilation, 24-96 Consecutive Hours (ICD-10-PCS; 2023-06-15)
PROC: 5A1D70Z Performance of Urinary Filtration, Intermittent, Less than 6 Hours Per Day (ICD-10-PCS; 2023-06-15)
PROC: 5A1D70Z Performance of Urinary Filtration, Intermittent, Less than 6 Hours Per Day (ICD-10-PCS; 2023-06-17)
PROC: 5A1D70Z Performance of Urinary Filtration, Intermittent, Less than 6 Hours Per Day (ICD-10-PCS; 2023-06-19)
PROC: 5A1D70Z Performance of Urinary Filtration, Intermittent, Less than 6 Hours Per Day (ICD-10-PCS; 2023-06-21)
PROC: 5A1D70Z Performance of Urinary Filtration, Intermittent, Less than 6 Hours Per Day (ICD-10-PCS; 2023-06-23)
DX: A41.9 Sepsis, unspecified organism (principal); E10.10 Type 1 diabetes mellitus with ketoacidosis without coma; I46.9 Cardiac arrest, cause unspecified; N18.6 End stage renal disease; R65.21 Severe sepsis with septic shock; J96.01 Acute respiratory failure with hypoxia; G93.41 Metabolic encephalopathy; J69.0 Pneumonitis due to inhalation of food and vomit; I21.3 ST elevation (STEMI) myocardial infarction of unspecified site; I13.2 Hypertensive heart and chronic kidney disease with heart failure and with stage 5 chronic kidney disease, or end stage renal disease; D68.9 Coagulation defect, unspecified; E87.1 Hypo-osmolality and hyponatremia; E44.0 Moderate protein-calorie malnutrition; D75.89 Other specified diseases of blood and blood-forming organs; E83.52 Hypercalcemia; E87.5 Hyperkalemia; I48.91 Unspecified atrial fibrillation; I50.9 Heart failure, unspecified; E10.22 Type 1 diabetes mellitus with diabetic chronic kidney disease; L84 Corns and callosities; E78.5 Hyperlipidemia, unspecified; K21.9 Gastro-esophageal reflux disease without esophagitis; R26.9 Unspecified abnormalities of gait and mobility; D64.9 Anemia, unspecified; E10.319 Type 1 diabetes mellitus with unspecified diabetic retinopathy without macular edema; E10.40 Type 1 diabetes mellitus with diabetic neuropathy, unspecified; Z99.2 Dependence on renal dialysis; Z89.512 Acquired absence of left leg below knee; Z79.4 Long term (current) use of insulin; Z78.1 Physical restraint status; Z80.3 Family history of malignant neoplasm of breast; Z82.49 Family history of ischemic heart disease and other diseases of the circulatory system; Z68.24 Body mass index [BMI] 24.0-24.9, adult
CPT/HCPCS: 31500; 36415; 36600; 71045; 73630; 80048; 80051; 80053; 80170; 80202; 80320; 82010; 82375; 82805; 82962; 83036; 83605; 83735; 83880; 83930; 84100; 84145; 84484; 84703; 85025; 86705; 86709; 86850; 86900; 87070; 87340; 90935; 93005; 93306; 94002; 94003; 99291; C1725; C9113; J0885; J1580; J1650; J1815; J2250; J2543; J3010; J3370; J3430; J3490; J7030; J7042; J7050; J7060; G0480

== ENCOUNTER 2023-07-21 03:47 | Inpatient (IN) | payer MEDICARE ==
[~2023-07-21] VITALS: Ht 160 cm; Wt 64.4 kg
[2023-07-21] VITALS (59 sets, daily range): BP systolic 110–171; BP diastolic 83–130; PULSE 87–112; RESP 12–23; TEMP 97.3–99
[~2023-07-21 03:47] MED LIST: CLON0.1T MT; CLON1PAT10 TP; FLUC100T42 MT; INSU100I28 SQ; ISOS10TA2 MT; LEVO-65 MT; NIFE-32 MT
[2023-07-21 04:20] LABS: HEMATOCRIT. 29.9 % (36.0-48.0); HEMOGLOBIN. 9.5 g/dL (12.0-16.0); MEAN CORPUSCULAR HEMOGLOBIN 25.6 pg (28.0-32.0); MEAN CORPUSCULAR HGB CONC 31.8 g/dL (31.0-37.0); MEAN CORPUSCULAR VOLUME 80.7 fL (81.0-99.0); MEAN PLATELET VOLUME 9.1 fl (7.4-10.4); PLATELET 302 x1000/uL (130-400); RED BLOOD CELL COUNT 3.71 mill/uL (4.2-5.4); RED CELL DISTRIBUTION WIDTH 20.7 % (11.6-14.6); WHITE BLOOD COUNT 9.3 x1000/uL (4.5-11.0)
[2023-07-21 04:23] LABS: DIFFERENTIAL COMMENT 1
[2023-07-21] MEDS: MORPHINE SULFATE 4 MG/ML INJ (FOR IV/IM USE) IV STA (04:32)
[2023-07-21] MEDS: ONDANSETRON HCL 4MG/2ML INJ IV STA (04:32)
[2023-07-21 04:34] LABS: ALANINE AMINOTRANSFERASE 20 IU/L (10-49); ALBUMIN 4.8 g/dL (3.2-4.8); ASPARTATE AMINOTRANSFERASE 19 IU/L (<34); BILIRUBIN TOTAL < 0.2 mg/dL (0.1-1.0); CALCIUM 9.4 mg/dL (8.7-10.4); CARBON DIOXIDE 31 mEq/L (21-32); CHLORIDE 96 mEq/L (98-107); GLUCOSE 215 mg/dL (70-105); POTASSIUM 4.5 mEq/L (3.5-5.1); PROTEIN TOTAL 8.8 g/dL (6.0-8.3); SODIUM 137 mEq/L (136-145); TROPONIN I HIGH SENSITIVITY 14 ng/L (3.0-34); UREA NITROGEN BLOOD 63 mg/dL (9-23)
[2023-07-21 04:41] LABS: CREATININE 6.8 mg/dL (0.6-1.0)
[2023-07-21] MEDS: NICARDIPINE 40MG/200ML PREMIX 200 ML IV NR (04:42)
[2023-07-21] MEDS: NICARDIPINE 100 MG in SODIUM CHLORIDE 0.9% 60 ML IV ONE (04:44)
[2023-07-21 05:08] LABS: BG BASE EXCESS 1.5 mmol/L (-2.0-2.0); BG CARBOXYHEMOGLOBIN 1.2 % (0.5-1.5); BG DEOXYHEMOGLOBIN 1.9 % (0.0-5.0); BG FRACTION INSPIRED OXYGEN 100; BG HCO3 ACT 32.2 mmol/L (22.0-26.0); BG METHEMOGLOBIN 0.3 % (0.0-1.5); BG OXYGEN SATURATION 98.1 % (92.0-98.5); BG OXYHEMOGLOBIN 96.6 % (94.0-97.0); BG PCO2 92.1 mmHg (35.0-45.0); BG PH 7.161 (7.350-7.450); BG PO2 129.2 mmHg (75.0-100.0); BG SAMPLE SITE LEFT RADIAL; BG TOTAL HEMOGLOBIN 11.1 g/dL (12.0-18.0); BG VENT MODE MASK - BIPAP
[2023-07-21 05:18] LABS: ANISOCYTOSIS 1+; PLATELET ESTIMATE NORMAL
[2023-07-21] MEDS: ETOMIDATE 2MG/ML 10ML VIAL IV ONE (05:21)
[2023-07-21] MEDS: VECURONIUM BROMIDE 10 MG/VIAL IV ONE (05:22)
[2023-07-21] MEDS: PROPOFOL 10MG/ML 100ML 100 ML IV ONE (05:30)
[2023-07-21] MEDS ORDERED: DEXTROSE 50% WATER 50ML SYRINGE IV PRN (06:00)
[2023-07-21] MEDS ORDERED: ACETAMINOPHEN 650MG SUPP PR PRN (06:00)
[2023-07-21] MEDS ORDERED: ONDANSETRON HCL 4MG/2ML INJ IV PRN (06:00)
[2023-07-21] MEDS ORDERED: ACETYLCYSTEINE 100MG/ML 10% VIAL 4ML INH SCH (06:00)
[2023-07-21] MEDS ORDERED: HYDRALAZINE 20MG/ML VIAL IV PRN (06:15)
[2023-07-21] MEDS ORDERED: NICARDIPINE 40MG/200ML PREMIX 200 ML IV PRN (06:15)
[2023-07-21 06:52] LABS: AMMONIA < 10 uMol/L (<32); CALCIUM 9.5 mg/dL (8.7-10.4); CARBON DIOXIDE 30 mEq/L (21-32); CHLORIDE 94 mEq/L (98-107); GAMMA GLUTAMYL TRANSPEPTIDASE 304 IU/L (<38); GLUCOSE 229 mg/dL (70-105); IRON 52 ug/dL (50-170); PHOSPHORUS 6.9 mg/dL (2.5-4.9); POTASSIUM 5.2 mEq/L (3.5-5.1); SODIUM 136 mEq/L (136-145); TOTAL IRON BINDING CAPACITY 273 ug/dl (250-425); TROPONIN I HIGH SENSITIVITY 14 ng/L (3.0-34); UREA NITROGEN BLOOD 61 mg/dL (9-23)
[2023-07-21 06:53] LABS: CREATINE KINASE MB FRACTION 2.9 ng/mL (0.5-3.6)
[2023-07-21 06:57] LABS: CREATININE 7.1 mg/dL (0.6-1.0)
[2023-07-21 07:00] LABS: D-DIMER 4.61 mg/L FEU (<0.50); PROTHROMBIN TIME 11.3 sec (9.6-11.0)
[2023-07-21] MEDS: PANTOPRAZOLE SODIUM 40 MG/VIAL IV SCH (07:26)
[2023-07-21] MEDS: ENOXAPARIN 30MG/0.3ML SYR SUBCUT SCH (09:16)
[2023-07-21] MEDS: BLOOD SUGAR DIAGNOSTIC STRIP TEST SCH (09:16)
[2023-07-21] MEDS: INSULIN LISPRO 100 UNITS/ML SUBCUT SCH (09:17)
[2023-07-21] MEDS: SODIUM POLYSTYRENE SULFONATE 15 G/60 ML BOT NG NR (09:25)
[2023-07-21 09:33] LABS: BG BASE EXCESS -3.1 mmol/L (-2.0-2.0); BG CARBOXYHEMOGLOBIN 0.3 % (0.5-1.5); BG DEOXYHEMOGLOBIN 3.2 % (0.0-5.0); BG FRACTION INSPIRED OXYGEN 70; BG HCO3 ACT 22.8 mmol/L (22.0-26.0); BG METHEMOGLOBIN 0.3 % (0.0-1.5); BG OXYGEN SATURATION 96.8 % (92.0-98.5); BG OXYHEMOGLOBIN 96.2 % (94.0-97.0); BG PCO2 44.5 mmHg (35.0-45.0); BG PH 7.327 (7.350-7.450); BG PO2 98.3 mmHg (75.0-100.0); BG SAMPLE SITE RIGHT RADIAL; BG TOTAL HEMOGLOBIN 10.5 g/dL (12.0-18.0); BG VENT MODE VENT - AC
[2023-07-21 10:00] LABS: HEPATITIS A AB IGM NEGATIVE (Negative); HEPATITIS B CORE AB IGM NEGATIVE (Negative); HEPATITIS B SURFACE ANTIGEN NEGATIVE (Negative); HEPATITIS C AB NON REACTIVE (Neg) (Negative)
[2023-07-21] MEDS: IPRATROPIUM/ALBUTEROL 0.5-3(2.5)MG/3ML NEB HHN SCH (11:25)
[2023-07-21] MEDS ORDERED: IOHEXOL-350 100 ML BOTTLE ONE (11:43)
[2023-07-21] MEDS: HYDROMORPHONE HCL/PF 2MG/ML CPJ IV PRN (14:27)
[2023-07-21] MEDS: HYDRALAZINE HCL 50MG TABLET PO SCH (14:27)
[2023-07-21 18:38] LABS: CREATINE KINASE 57 IU/L (34-145); CREATINE KINASE MB FRACTION 1.9 ng/mL (0.5-3.6); TROPONIN I HIGH SENSITIVITY 18 ng/L (3.0-34)
[2023-07-21] MEDS: PROPOFOL 10MG/ML 100ML 100 ML IV PRN (19:08)
[2023-07-21] MEDS ORDERED: ACETYLCYSTEINE 200MG/ML 20% VIAL 4ML INH SCH (22:00)
[2023-07-22] VITALS: BP 131/87; PULSE 91; RESP 13; TEMP 98.3
[2023-07-22 00:15] VITALS: BP 126/90; PULSE 90; RESP 13
[2023-07-22 00:30] VITALS: BP 136/94; PULSE 91; RESP 12
[2023-07-22 00:45] VITALS: BP 139/96; PULSE 90; RESP 13
[2023-07-22 00:49] VITALS: BP 139/96; RESP 16; O2SAT 100
[2023-07-23] MEDS ORDERED: IOHEXOL-350 100 ML BOTTLE ONE (12:12)
== END 2023-07-22 01:05 | disposition short-term general hospital (02) | DRG 208 ==
LOC: ER 03:47 → CVICU 05:31 → EDBEDREQ 05:49 → EDBEDREQTM 05:49
PROVIDERS: ADMIT Internal Medicine; ATTEND Internal Medicine
PROC: 0BH17EZ Insertion of Endotracheal Airway into Trachea, Via Natural or Artificial Opening (ICD-10-PCS; principal; 2023-07-21)
PROC: 5A1935Z Respiratory Ventilation, Less than 24 Consecutive Hours (ICD-10-PCS; 2023-07-21)
PROC: 5A09357 Assistance with Respiratory Ventilation, Less than 24 Consecutive Hours, Continuous Positive Airway Pressure (ICD-10-PCS; 2023-07-21)
PROC: 5A1D70Z Performance of Urinary Filtration, Intermittent, Less than 6 Hours Per Day (ICD-10-PCS; 2023-07-21)
DX: J96.21 Acute and chronic respiratory failure with hypoxia (principal); I50.43 Acute on chronic combined systolic (congestive) and diastolic (congestive) heart failure; J18.9 Pneumonia, unspecified organism; N18.6 End stage renal disease; T82.868A Thrombosis due to vascular prosthetic devices, implants and grafts, initial encounter; I13.2 Hypertensive heart and chronic kidney disease with heart failure and with stage 5 chronic kidney disease, or end stage renal disease; N25.81 Secondary hyperparathyroidism of renal origin; I16.1 Hypertensive emergency; I16.9 Hypertensive crisis, unspecified; J96.22 Acute and chronic respiratory failure with hypercapnia; I27.20 Pulmonary hypertension, unspecified; E10.51 Type 1 diabetes mellitus with diabetic peripheral angiopathy without gangrene; J39.8 Other specified diseases of upper respiratory tract; D63.8 Anemia in other chronic diseases classified elsewhere; E10.22 Type 1 diabetes mellitus with diabetic chronic kidney disease; Z20.822 Contact with and (suspected) exposure to COVID-19; D64.9 Anemia, unspecified; Z99.2 Dependence on renal dialysis; E87.5 Hyperkalemia; E78.5 Hyperlipidemia, unspecified; N25.0 Renal osteodystrophy; I48.0 Paroxysmal atrial fibrillation; I1A.0 Resistant hypertension; Z89.512 Acquired absence of left leg below knee; Z86.718 Personal history of other venous thrombosis and embolism; Z82.49 Family history of ischemic heart disease and other diseases of the circulatory system; Z79.4 Long term (current) use of insulin; Y83.2 Surgical operation with anastomosis, bypass or graft as the cause of abnormal reaction of the patient, or of later complication, without mention of misadventure at the time of the procedure; J43.8 Other emphysema
CPT/HCPCS: 31500; 36415; 36600; 71045; 71275; 76700; 80048; 80053; 82140; 82375; 82550; 82553; 82728; 82805; 82962; 82977; 83036; 83540; 83550; 83605; 83735; 83880; 84100; 84145; 84478; 84484; 85025; 85379; 86705; 86709; 87070; 87340; 87426; 90935; 93005; 93970; 94002; 94003; 94640; 94660; 99291; C9113; J1170; J1650; J1815; J2270; J2405; J2704; J3490; J7050; J7608; Q9967

== ENCOUNTER 2023-12-05 11:11 | Emergency (ER) | payer MEDICARE ==
[~2023-12-05] VITALS: Ht 185.4 cm; Wt 65.0 kg
[2023-12-05 11:17] VITALS: O2SAT 100
[2023-12-05] MEDS: MORPHINE SULFATE 4 MG/ML INJ (FOR IV/IM USE) IV ONE (12:18)
[2023-12-05 12:28] LABS: BASOPHILS % 0.7 % (0.0-2.0); EOSINOPHILS % 4.5 % (0.0-5.0); HEMATOCRIT. 36.4 % (36.0-48.0); HEMOGLOBIN. 11.9 g/dL (12.0-16.0); LYMPHOCYTES % 16.4 % (20.0-50.0); MEAN CORPUSCULAR HEMOGLOBIN 28.2 pg (28.0-32.0); MEAN CORPUSCULAR HGB CONC 32.6 g/dL (31.0-37.0); MEAN CORPUSCULAR VOLUME 86.6 fL (81.0-99.0); MEAN PLATELET VOLUME 8.9 fl (7.4-10.4); MONOCYTES % 11.3 % (2.0-8.0); NEUTROPHILS % 67.1 % (40.0-76.0); PLATELET 217 x1000/uL (130-400); RED CELL DISTRIBUTION WIDTH 20.3 % (11.6-14.6); WHITE BLOOD COUNT 6.8 x1000/uL (4.5-11.0)
[2023-12-05 12:30] LABS: POTASSIUM 3.9 mEq/L (3.5-5.1)
[2023-12-05 12:31] LABS: CALCIUM 9.1 mg/dL (8.7-10.4)
[2023-12-05 12:41] VITALS: BP 163/109; PULSE 107; RESP 20; TEMP 98.6
== END 2023-12-05 14:16 | disposition home or self-care (01) ==
LOC: ER 11:29
DX: J95.03 Malfunction of tracheostomy stoma (principal); E11.9 Type 2 diabetes mellitus without complications; Z88.6 Allergy status to analgesic agent; Z88.1 Allergy status to other antibiotic agents; Z79.899 Other long term (current) drug therapy
CPT/HCPCS: 99283; 96374; 80048; 85025; 36415; J2270